=== PATIENT | female | born 1950 | race Asian ===

== ENCOUNTER 2017-05-12 07:41 | Day surgery (SDC) | payer OTHER ==
[2017-05-12] MEDS ORDERED: DICLOFENAC 0.1% 2.5 ML OPH (08:32)
[2017-05-12] MEDS: DICLOFENAC 0.1% 2.5 ML OPH OPER (08:40)
[2017-05-12] MEDS: TROPICAMIDE 1% 3 ML OPH OPER (08:40)
[2017-05-12] MEDS: LIDOCAINE 3.5% GEL TUBE OPER (08:42)
[2017-05-12] MEDS: MOXIFLOXACIN 0.5% 3 ML OPH OPER (08:42)
[2017-05-12] MEDS ORDERED: ACETAZOLAMIDE 250 MG TAB PO (09:00)
[2017-05-12] MEDS: PHENYLephrine 10% 5 ML OPH OPER (09:12)
[2017-05-12 09:24] LABS: INR 0.92; PARTIAL THROMBOPLASTIN TIME 27.3 Sec (25.0-35.0); PROTIME 12.4 Sec (11.9-14.9)
[2017-05-12] MEDS ORDERED: FENTAnyl 50 MCG/ML VIAL (09:58)
[2017-05-12] MEDS ORDERED: MIDAZOLAM 1 MG/ML 2 ML INJ (09:58)
[2017-05-12] MEDS: EPINEPHrine 1 MG INJ (10:14)
[2017-05-12] MEDS: LIDOCAINE 1% (MPF) 10 ML INJ (10:16)
[2017-05-12] MEDS: TOBRAMYCIN/DEXAMETH 3.5 GM OPH OINT (10:17)
[2017-05-12] MEDS ORDERED: ONDANSETRON 4 MG INJ (11:07)
[2017-05-12] MEDS: ONDANSETRON 4 MG INJ IV ×2 (11:15→12:48)
[2017-05-12] MEDS ORDERED: HYDROmorphONE (0.2 MG/ML) 10ML SYG IV ×2 (11:30)
[2017-05-12] MEDS ORDERED: PROCHLORPERAZINE 10 MG INJ IV (11:30)
[2017-05-12] MEDS ORDERED: DIPHENHYDRAMINE 50 MG INJ IV (11:30)
[2017-05-12] MEDS ORDERED: FENTAnyl 50 MCG/ML VIAL IV (11:30)
[2017-05-12] MEDS ORDERED: OXYCODONE/ACETAMINOPHEN (5/325) TAB PO (11:30)
[2017-05-12] MEDS: ACETAZOLAMIDE 250 MG TAB PO (13:21)
== END 2017-05-12 14:05 | disposition home or self-care (01) ==
LOC: SDS 07:41
DX: H26.9 Unspecified cataract (principal); E78.5 Hyperlipidemia, unspecified
CPT/HCPCS: 66984; 85610; 85730

== ENCOUNTER 2017-06-23 07:22 | Day surgery (SDC) | payer OTHER ==
[~2017-06-23 07:22] MED LIST: ACETAZOLAMIDE 250 MG TAB PO; DICLOFENAC 0.1% 2.5 ML OPH OPER; LIDOCAINE 3.5% GEL TUBE OPER; MOXIFLOXACIN 0.5% 3 ML OPH OPER; PHENYLephrine 10% 5 ML OPH OPER; TROPICAMIDE 1% 3 ML OPH OPER
[2017-06-23] MEDS: TROPICAMIDE 1% 3 ML OPH OPER (08:03)
[2017-06-23] MEDS: MOXIFLOXACIN 0.5% 3 ML OPH OPER (08:03)
[2017-06-23] MEDS ORDERED: EPINEPHrine 1 MG INJ (08:03)
[2017-06-23] MEDS ORDERED: CARBACHOL 0.01% 1.5 ML OPH INJ (08:03)
[2017-06-23] MEDS ORDERED: LIDOCAINE 1% (MPF) 10 ML INJ (08:03)
[2017-06-23] MEDS ORDERED: TOBRAMYCIN 0.3% 3.5 GM OPH OINT (08:03)
[2017-06-23] MEDS: PHENYLephrine 10% 5 ML OPH OPER (08:03)
[2017-06-23] MEDS: LIDOCAINE 3.5% GEL TUBE OPER (08:04)
[2017-06-23] MEDS: DICLOFENAC 0.1% 2.5 ML OPH OPER (08:04)
[2017-06-23] MEDS ORDERED: SODIUM HYALURONATE 14 MG/ML SYG (08:07)
[2017-06-23] MEDS: LIDOCAINE 1% (MPF) 10 ML INJ INJ (08:50)
[2017-06-23] MEDS: TETRACAINE 0.5% 4 ML OPH OPER (08:50)
[2017-06-23] MEDS ORDERED: TOBRAMYCIN/DEXAMETH 3.5 GM OPH OINT (08:55)
[2017-06-23 09:08] LABS: INR 0.87; PROTIME 11.9 Sec (11.9-14.9); PT RATIO 0.9
[2017-06-23 09:09] LABS: PARTIAL THROMBOPLASTIN TIME 26.8 Sec (25.0-35.0)
[2017-06-23] MEDS ORDERED: PROPOFOL 20 ML (09:24)
[2017-06-23] MEDS ORDERED: MIDAZOLAM 1 MG/ML 2 ML INJ (09:28)
[2017-06-23] MEDS: CARBACHOL 0.01% 1.5 ML OPH INJ IO (09:43)
[2017-06-23] MEDS: SODIUM HYALURONATE 10 MG/ML SYG IO ×2 (09:54→10:00)
[2017-06-23] MEDS ORDERED: OXYCODONE/ACETAMINOPHEN (5/325) TAB PO (10:30)
[2017-06-23] MEDS ORDERED: ONDANSETRON 4 MG INJ IV (10:30)
== END 2017-06-23 11:13 | disposition home or self-care (01) ==
LOC: SDS 07:22
DX: H26.9 Unspecified cataract (principal); I10 Essential (primary) hypertension; E78.5 Hyperlipidemia, unspecified; E78.00 Pure hypercholesterolemia, unspecified
CPT/HCPCS: 66984; 85610; 85730